=== PATIENT | female | born 1940 | race Caucasian/White ===

== ENCOUNTER 2020-08-27 15:18 | Emergency (ER) | payer MEDICARE, OTHER ==
[~2020-08-27] VITALS: Ht 167.6 cm; Wt 67.0 kg
[2020-08-27] MEDS ORDERED: ONDANSETRON PF 4 MG/2 ML VIAL. IVP ONE (16:00)
[2020-08-27] MEDS ORDERED: IV NORMAL SALINE 500ML 500 ML IV ONE ×2 (16:00→17:00)
[2020-08-27 16:18] LABS: BASO % 0 % (0-3); EOS # 0.1 x10^3/uL (0.0-0.7); EOS % 2 % (0-3); HEMATOCRIT 37.9 % (36.0-47.0); HEMOGLOBIN 12.4 g/dL (12.0-15.5); LYMPH # 1.8 x10^3/uL (1.0-4.8); LYMPH % 25 % (24-48); MEAN CORPUSCULAR HEMOGLOBIN 30 pg (25-35); MEAN CORPUSCULAR HGB CONC 33 g/dL (31-37); MEAN CORPUSCULAR VOLUME 91 fL (79-100); MONO # 0.6 x10^3/uL (0.0-1.1); MONO % 8 % (0-9); NEUT # 4.4 x10^3uL (1.8-7.7); NEUT % 65 % (31-73); PLATELET COUNT 198 x10^3/uL (140-400); RED BLOOD COUNT 4.16 x10^6/uL (3.50-5.40); RED CELL DISTRIBUTION WIDTH 14.2 % (11.5-14.5); WHITE BLOOD COUNT 6.9 x10^3/uL (4.0-11.0)
--- NOTE | 2020-08-27 16:21 | EKG ---
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
--- NOTE | 2020-08-27 16:24 | PHYS DOC ---
Past History Past Medical History: Diverticulitis, Gallstones, Hypertension, Other (Short gut syndrome) Additional Past Medical Histor: rheumatic fever, bowel obstruction, Past Surgical History: Cholecystectomy, Colectomy, Hysterectomy Additional Past Surgical Histo: colostomy, multiple colectomies, mastectomies Alcohol Use: None Adult General Chief Complaint Chief Complaint: NAUSEA/VOMITING/DIARRHEA HPI HPI Patient is a 80-year-old female who presents for nausea and vomiting. Patient reports this is acute on chronic phenomena. Patient has extensive abdominal surgery history, currently has colectomy. Patient also has short gut syndrome and receives TPN frequently in outpatient setting as a result of high output and need for increased calories. Patient reports experiencing generalized nausea "every other month or so". She has previously prescribed Zofran ODT which typically resolves her symptoms. Patient reports yesterday having generalized nausea throughout the day without any other kind of known inciting ingestions, trauma, medication changes, sick contact exposures, fever. Patient reports taking 4mg Zofran ODT but this did not help. Patient reports having ongoing nausea and suffering 3-5 episodes of nonbloody nonbilious emesis overnight. Patient took x1 4 mg Zofran ODT this morning and when nausea continued to bother her, she called her primary care physician. She was subsequently referred to our ER for further evaluation Review of Systems Review of Systems Fourteen body systems of review of systems have been reviewed. See HPI for pertinent positives and negative responses, other rivas all other systems are negative, non-pertinent or non-contributory Current Medications Current Medications Current Medications Medications (Trade) Dose Ordered Sig/Mattie Start Time Stop Time Status Last Admin Dose Admin Ondansetron HCl (Zofran) 4 mg 1X ONCE 08/27/20 16:00 08/27/20 16:04 DC Sodium Chloride 500 ml @ 0 mls/hr 1X ONCE 08/27/20 16:00 08/27/20 16:04 DC 08/27/20 16:20 500 MLS/HR Allergies Allergies Allergies Coded Allergies Type Severity Reaction Last Updated Verified Penicillins Allergy Intermediate Hives 08/27/20 Yes Sulfa (Sulfonamide Antibiotics) Allergy Intermediate Hives 08/27/20 Yes prochlorperazine Allergy Unknown 08/27/20 Yes Physical Exam Physical Exam Constitutional: Well developed, well nourished, no acute distress, non-toxic appearance. HENT: Normocephalic, atraumatic, bilateral external ears normal, oropharynx moist, no oral exudates, nose normal. Eyes: PERRLA, EOMI, conjunctiva normal, no discharge. Neck: Normal range of motion, no tenderness, supple, no stridor. Cardiovascular: Heart rate tachycardic, sinus rhythm, no murmurs rubs or gallops Lungs & Thorax: Bilateral breath sounds clear to auscultation Abdomen: Bowel sounds normal, soft, no tenderness, no guarding, no tenderness no masses, no pulsatile masses. Nonsurgical abdomen, no peritoneal signs. Well- appearing colostomy with stool contents in bag that are grossly well-appearing Skin: Warm, dry, no erythema, no rash. Back: No tenderness, no CVA tenderness. Extremities: No tenderness, no cyanosis, no clubbing, ROM intact, no edema. Neurologic: Alert and oriented X 3, grossly normal motor & sensory function, no focal deficits noted. Psychologic: Affect normal, judgement normal, mood normal. Current Patient Data Vital Signs Vital Signs Date Time Temp Pulse Resp B/P (MAP) Pulse Ox O2 Delivery O2 Flow Rate FiO2 08/27/20 15:34 97.9 110 19 114/56 (75) 95 Lab Results Laboratory Tests Test 08/27/20 16:00 White Blood Count 6.9 x10^3/uL (4.0-11.0) Red Blood Count 4.16 x10^6/uL (3.50-5.40) Hemoglobin 12.4 g/dL (12.0-15.5) Hematocrit 37.9 % (36.0-47.0) Mean Corpuscular Volume 91 fL (79-100) Mean Corpuscular Hemoglobin 30 pg (25-35) Mean Corpuscular Hemoglobin Concent 33 g/dL (31-37) Red Cell Distribution Width 14.2 % (11.5-14.5) Platelet Count 198 x10^3/uL (140-400) Neutrophils (%) (Auto) 65 % (31-73) Lymphocytes (%) (Auto) 25 % (24-48) Monocytes (%) (Auto) 8 % (0-9) Eosinophils (%) (Auto) 2 % (0-3) Basophils (%) (Auto) 0 % (0-3) Neutrophils # (Auto) 4.4 x10^3uL (1.8-7.7) Lymphocytes # (Auto) 1.8 x10^3/uL (1.0-4.8) Monocytes # (Auto) 0.6 x10^3/uL (0.0-1.1) Eosinophils # (Auto) 0.1 x10^3/uL (0.0-0.7) Basophils # (Auto) 0.0 x10^3/uL (0.0-0.2) Sodium Level 137 mmol/L (136-145) Potassium Level 4.2 mmol/L (3.5-5.1) Chloride Level 101 mmol/L (98-107) Carbon Dioxide Level 26 mmol/L (21-32) Anion Gap 10 (6-14) Blood Urea Nitrogen 34 mg/dL (7-20) Creatinine 2.2 mg/dL (0.6-1.0) Estimated GFR (Cockcroft-Gault) 21.4 BUN/Creatinine Ratio 15 (6-20) Glucose Level 106 mg/dL (70-99) Calcium Level 9.3 mg/dL (8.5-10.1) Total Bilirubin 0.4 mg/dL (0.2-1.0) Aspartate Amino Transf (AST/SGOT) 22 U/L (15-37) Alanine Aminotransferase (ALT/SGPT) 33 U/L (14-59) Alkaline Phosphatase 104 U/L (46-116) Troponin I Quantitative < 0.017 ng/mL (0-0.055) Total Protein 7.1 g/dL (6.4-8.2) Albumin 3.2 g/dL (3.4-5.0) Albumin/Globulin Ratio 0.8 (1.0-1.7) Lipase 116 U/L (73-393) EKG EKG EKG ordered and interpreted by myself at 1618 hrs. as sinus tachycardia at 102 bpm, unremarkable intervals, no axis deviation, no fascicular blocks, no ischemic findings, no STEMI Radiology/Procedures Radiology/Procedures PROCEDURE: PORTABLE CHEST 1V Exam: Chest one view INDICATION: Chest pain TECHNIQUE: Frontal view of the chest Comparisons: None FINDINGS: Left anterior chest wall port with catheter tip at the atrial caval junction. The cardiomediastinal silhouette and pulmonary vessels are within normal limits. Strandy opacity at the left lung base. No pleural effusion IMPRESSION: Strandy opacity at the left lung base likely related to atelectasis, developing consolidative process is difficult to exclude. Electronically signed by: Nano Martinez MD (08/27/2020 4:21 PM) KIMBERLY PROCEDURE: KUB Exam: Abdomen one view INDICATION: Abdominal pain TECHNIQUE: Supine view the abdomen Comparisons: None FINDINGS: Air and stool are noted throughout the colon to level the rectum in a nonobstructive bowel gas pattern. Surgical clips overlying the right hemiabdomen. No suspicious masses or calcifications. Visualized osseous structures are unremarkable. IMPRESSION: Nonobstructive bowel gas pattern. Electronically signed by: Nano Martinez MD (08/27/2020 4:22 PM) KIMBERLY Heart Score HEART Score for Chest Pain: HEART Score for Chest Pain Response (Comments) Value History Slighlty/Non-Suspicious 0 ECG Normal 0 Age > 65 2 Risk Factors >3 Risk Factors or Hx CAD 2 Troponin < Normal Limit 0 Total 4 Risk Factors: Risk Factors: DM, Current or recent (<one month) smoker, HTN, HLP, family history of CAD, obesity. Risk Scores: Risk Factors: DM, Current or recent (<one month) smoker, HTN, HLP, family hi story of CAD, obesity. Course & Med Decision Making Course & Med Decision Making Discussed most likely diagnosis of nausea and vomiting causing dehydration and subsequent elevated creatinine ER intervention which included 4 mg IV Zofran and a total of 1 L normal saline administration completely resolved patient's symptoms Discussed findings of nonobstructive bowel gas pattern on radiographs. I disclose that I found no emergent and/or surgical findings on my comprehensive work-up. I did disclose that patient is high risk for decline and so, close outpatient follow-up is advised Given that patient is hemodynamically stable, tolerating p.o. prior to discharge, and ambulating without difficulty, I feel she is safe to go home with previously prescribed Zofran use as needed for nausea and close PCP follow-up for likely transient nausea and vomit Strict return precautions were discussed with patient, all questions and concerns addressed prior to ER departure in stable condition Dragon Disclaimer Dragon Disclaimer This electronic medical record was generated, in whole or in part, using a voice recognition dictation system. Departure Departure: Impression: Primary Impression: Nausea & vomiting Additional Impressions: Dehydration Elevated serum creatinine Disposition: DC HOME SELF CARE/HOMELESS Condition: STABLE Referrals: NOA YANG MD (PCP) Patient Instructions: Dehydration, Elderly, Nausea and Vomiting Additional Instructions: You have been evaluated in the Emergency Department today for nausea and vomit Your evaluation was not suggestive of any emergent condition requiring medical intervention at this time. However, some abdominal problems make take more time to appear. Therefore, it is important for you to watch for any new symptoms or worsening of your current condition. Please call your primary care physician JOSELIN to schedule outpatient follow-up in upcoming 7 to 14 days time for repeat evaluation and to ensure improvement in your symptoms Return to the Emergency Department if you experience worsening pain, persistent fevers greater than 100.4, recurrent vomiting, blood in vomit, blood in stool, dark tarry stool, chest pain, difficulty breathing, or any other concerning symptoms. It was a pleasure to take care of you and I wish you a speedy recovery! Problem Qualifiers TALYA MORENO DO Aug 27, 2020 16:24
[2020-08-27 16:38] LABS: CALCIUM 9.3 mg/dL (8.5-10.1); CREATININE 2.2 mg/dL (0.6-1.0); GFR 21.4; POTASSIUM 4.2 mmol/L (3.5-5.1)
[2020-08-27 16:43] LABS: ALBUMIN 3.2 g/dL (3.4-5.0); ALBUMIN/GLOBULIN RATIO 0.8 (1.0-1.7); TOTAL BILIRUBIN 0.4 mg/dL (0.2-1.0); TOTAL PROTEIN 7.1 g/dL (6.4-8.2)
[2020-08-27 17:35] VITALS: BP 118/49
== END 2020-08-27 18:00 | disposition home or self-care (01) ==
LOC: ER 15:18
DX: E86.0 Dehydration (principal); R79.89 Other specified abnormal findings of blood chemistry; I10 Essential (primary) hypertension; Z90.49 Acquired absence of other specified parts of digestive tract; Z90.710 Acquired absence of both cervix and uterus; Z88.0 Allergy status to penicillin; Z88.2 Allergy status to sulfonamides; Z88.8 Allergy status to other drugs, medicaments and biological substances
CPT/HCPCS: 36415; 71045; 74018; 80053; 83690; 84484; 85025; 93005; 96361; 96374; 99285; J2405; J7040

== ENCOUNTER → 2021-03-28 | Outpatient (CLI) | payer MEDICARE, OTHER ==
[2021-03-28 11:56] VITALS: BP 119/57
--- NOTE | 2021-03-28 16:39 | RAD ---
XR RT WRIST 3VIEWS Clinical indications: Reason: RT WRIST PAIN / Spl. Instructions: / History: Findings: No acute fracture or dislocation or osteolytic process is evident. 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 The lunate bone is rotated in the lateral view such that the articular surface with th e capitate is angled dorsally. This may be seen with dorsal intercalated segmental instability. IMPRESSION: No acute osseous abnormality is evident. Dorsal intercalated segmental instability. Electronically signed by: Karson Barreto MD (03/28/2021 4:36 PM) [id number]
== END ==
LOC: PMG 14:08
PROVIDERS: ATTEND Nurse Practitioner Family
DX: M19.031 Primary osteoarthritis, right wrist (principal); M18.11 Unilateral primary osteoarthritis of first carpometacarpal joint, right hand
CPT/HCPCS: 73110

== ENCOUNTER 2021-12-21 17:36 | Emergency (ER) | payer MEDICARE, OTHER ==
[~2021-12-21] VITALS: Ht 167.6 cm; Wt 68.8 kg
--- NOTE | 2021-12-21 18:17 | PHYS DOC ---
Past History Past Medical History: Diverticulitis, Gallstones, Hypertension, Other Additional Past Medical Histor: rheumatic fever, bowel obstruction, excessive output from colostomy bag Past Surgical History: Cholecystectomy, Colectomy, Hysterectomy Additional Past Surgical Histo: colostomy, multiple colectomies, mastectomies x2; portacath Alcohol Use: None Adult General Chief Complaint Chief Complaint: ABNORMAL LABS HPI HPI Patient is an 81-year-old female with a past medical history significant for breast cancer status post bilateral mastectomy, diverticulitis with significant amounts of bowel resection secondary to bowel and colostomy placement 5 years ago who presents to the emergency department at the request of her primary care physician for a hemoglobin in the sixes after being tested 2 days ago. Patient denies any recent travel, traumas, illnesses, fevers, chest pain, shortness of breath, dysuria, hematuria. Denies any numbness/weakness/tingling. States she has had over the last few weeks increased bowel distention and generalized bowel tenderness with some sharp pain, 5 out of 10 in the epigastrium. Denies any nausea or vomiting. Does endorse bleeding around the stoma for quite some time for which she is seeing wound care and has an appointment next week. Review of Systems Review of Systems Review of systems otherwise unremarkable except noted in HPI Allergies Allergies Allergies Coded Allergies Type Severity Reaction Last Updated Verified Penicillins Allergy Intermediate Hives 12/21/21 Yes Sulfa (Sulfonamide Antibiotics) Allergy Intermediate Hives 12/21/21 Yes prochlorperazine Allergy Unknown 12/21/21 Yes Physical Exam Physical Exam Constitutional: Well developed, well nourished, no acute distress, non-toxic appearance. [] HENT: Normocephalic, atraumatic, oropharynx dry, no oral exudates, nose normal. [] Eyes: conjunctiva normal, no discharge. [] Neck: Normal range of motion, no tenderness, supple, no stridor. [] Cardiovascular: Borderline sinus tachycardia Lungs & Thorax: No respiratory distress, mild tachypnea, relatively clear lung sounds Abdomen: Bowel sounds increased, soft, some distention, generalized tenderness, mild epigastric pain on palpation, midline colostomy about half full with dark stool, stoma appears to be irritated and bleeding, Skin: Warm, dry, no erythema, no rash. [] Back: No tenderness, no CVA tenderness. [] Extremities: No tenderness, no cyanosis, no clubbing, ROM intact, no edema. [] Neurologic: Alert and oriented X 3, normal motor function, normal sensory function, able to sit, stand and walk without issue no focal deficits noted. [] Psychologic: Affect normal, judgement normal, mood normal. [] Current Patient Data Vital Signs Vital Signs Date Time Temp Pulse Resp B/P (MAP) Pulse Ox O2 Delivery O2 Flow Rate FiO2 12/21/21 17:47 97.6 102 18 182/82 (115) 96 Room Air EKG EKG [] Radiology/Procedures Radiology/Procedures [] Heart Score C/O Chest Pain: No Risk Factors: Risk Factors: DM, Current or recent (<one month) smoker, HTN, HLP, family history of CAD, obesity. Risk Scores: Risk Factors: DM, Current or recent (<one month) smoker, HTN, HLP, family history of CAD, obesity. Course & Med Decision Making Course & Med Decision Making Patient is an 81-year-old female with history of cancer, bowel resection and colostomy who presents with a hemoglobin in the sixes per her primary care physician Vital signs notable for tachycardia and hypertension. Physical exam noted above. Patient placed on the monitor with IV access established. Denied need for pain or nausea medicine at this time. Laboratory analysis including hemoglobin nonconcerning. Urinalysis not concerning. CT with no findings. On reassessment patient stated she still felt well, and since all of her tests were reassuring she would prefer to just go on home and follow-up in the morning with her primary care physician. Discussed diet over the next couple of days. Advised to call primary care physician for second morning to update on ED visit and set up an immediate follow-up for reevaluation. Patient states she already has an appointment for next week. Gave strict return precautions to the ED. Patient grateful, verbalized understanding and agreed with plan of discharge. Dragon Disclaimer Dragon Disclaimer This electronic medical record was generated, in whole or in part, using a voice recognition dictation system. Departure Departure: Impression: Primary Impression: Well adult health check Disposition: HOME / SELF CARE / HOMELESS Condition: STABLE Referrals: NOA YANG MD (PCP) Additional Instructions: Thank you for coming into the emergency department tonight and allowing us to take care of you. We checked all of your baseline labs today including your hemoglobin which were within normal limits and reassuring. Your urine was also reassuring for no urinary tract infection. We did the CT scan on your chest and your abdomen which did not find anything concerning. You are able to eat and drink normally. It is very important that you follow-up in the morning with your primary care physician to update on your ED visit and let them know that your hemoglobin was actually normal and not abnormal as found in the previous lab. Please come back to the emergency department immediately with new or concerning symptoms as we discussed. CHAPARRITA HEATON MD Dec 21, 2021 18:17
[2021-12-21 19:21] LABS: BASO % 0 % (0-3); EOS # 0.3 x10^3/uL (0.0-0.7); EOS % 4 % (0-3); HEMATOCRIT 39.1 % (36.0-47.0); LYMPH # 2.2 x10^3/uL (1.0-4.8); LYMPH % 32 % (24-48); MEAN CORPUSCULAR HEMOGLOBIN 31 pg (25-35); MEAN CORPUSCULAR HGB CONC 34 g/dL (31-37); MEAN CORPUSCULAR VOLUME 91 fL (79-100); MONO # 0.6 x10^3/uL (0.0-1.1); MONO % 8 % (0-9); NEUT # 3.8 x10^3uL (1.8-7.7); NEUT % 55 % (31-73); RED BLOOD COUNT 4.32 x10^6/uL (3.50-5.40); RED CELL DISTRIBUTION WIDTH 13.4 % (11.5-14.5); WHITE BLOOD COUNT 6.9 x10^3/uL (4.0-11.0)
[2021-12-21 19:33] LABS: HEMOGLOBIN 13.2 g/dL (12.0-15.5); PLATELET COUNT 151 x10^3/uL (140-400)
[2021-12-21 19:46] LABS: CALCIUM 9.2 mg/dL (8.5-10.1); CREATININE 1.1 mg/dL (0.6-1.0); GFR 47.4; POTASSIUM 4.6 mmol/L (3.5-5.1)
[2021-12-21 19:52] LABS: ALBUMIN 3.5 g/dL (3.4-5.0); ALBUMIN/GLOBULIN RATIO 1.1 (1.0-1.7); TOTAL BILIRUBIN 0.5 mg/dL (0.2-1.0); TOTAL PROTEIN 6.7 g/dL (6.4-8.2)
[2021-12-21] MEDS: IOHEXOL 300 MG/ML 75 ML VIAL. IV ONE ×2 (19:57→21:20)
[2021-12-21 21:00] LABS: BACTERIA,URINE 0 /HPF (0-FEW); CLARITY,URINE CLEAR; COLOR,URINE YELLOW; GLUCOSE,URINE NEG (NEG); NITRITE,URINE NEG (NEG); RBC,URINE 0 /HPF (0-2); SQUAMOUS EPITHELIAL CELL,UR OCC /LPF; UROBILINOGEN,URINE 0.2 mg/dL (0.2 mg/dL); WBC,URINE 0 /HPF (0-4)
--- NOTE | 2021-12-21 21:53 | RAD ---
Exam: CT of chest, abdomen and pelvis without contrast INDICATION: Abnormal hemoglobin, epigastric pain TECHNIQUE: Sequential axial images through the chest, abdomen and pelvis obtained without IV contrast . Sagittal and coronal reformatted images were reconstructed from the axial data and reviewed. Exposure: One or more of the following in the visualized dose reduction techniques were utilized for this examination: 1. Automated exposure control 2. Adjustment of the MA and/or KV according to patient size 3. Use of iterative of reconstructive technique Comparisons: None FINDINGS: No enlarged mediastinal lymph nodes are identified. Heart size is normal. No pericardial effusion. Mild coronary arterial calcifications. Thoracic aorta has a normal course and caliber. Pulmonary artery is not enlarged. Airways are patent. No consolidation or pneumothorax. Mild centrilobular emphysematous change noted p redominantly at the upper lungs. No pleural effusion or thickening. Evaluation of solid organs is limited secondary to noncontrast technique. Liver, spleen, pancreas, and adrenals are unremarkable. Gallbladder surgically absent. No perinephric inflammation or hydronephrosis. No renal or ureteral calculi are identified. Bladder is partially distended and appears thin-walled. Uterus is absent. No abnormal adnexal mass. Postoperative changes of partial colectomy with a left lower quadrant colostomy. Remainder of the lar ge and small bowel are unremarkable. No free intra-abdominal air or fluid. No obstruction. Abdominal aorta has normal course and caliber. No enlarged intra-abdominal lymph nodes are identified. No suspicious osseous lesions or acute fractures. IMPRESSION: 1. Postoperative changes of partial colectomy with a left lower quadrant colostomy. 2. Otherwise, no acute process identified within the chest, abdomen or pelvis. Electronically signed by: Nano Martinez MD (12/21/2021 9:51 PM) [facility]
[2021-12-21 22:26] VITALS: BP 180/63
[2021-12-21] MEDS ORDERED: ACETAMINOPHEN 500 MG TABLET PO ONE (22:30)
--- NOTE | 2021-12-23 02:48 | EKG ---
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
== END 2021-12-21 22:43 | disposition home or self-care (01) ==
LOC: ER 17:36
DX: Z00.00 Encounter for general adult medical examination without abnormal findings (principal); I10 Essential (primary) hypertension; Z90.13 Acquired absence of bilateral breasts and nipples; Z90.49 Acquired absence of other specified parts of digestive tract; Z88.0 Allergy status to penicillin; Z88.2 Allergy status to sulfonamides; Z88.8 Allergy status to other drugs, medicaments and biological substances
CPT/HCPCS: 36415; 71250; 74176; 80053; 81001; 82803; 83540; 83550; 83605; 83690; 83735; 84484; 85025; 86850; 86900; 86901; 87040; 93005; 99285; Q9967